=== PATIENT | male | born 2000 | race African-American/Black ===

== ENCOUNTER 2024-04-03 11:38 | Emergency (ER) | payer OTHER, SELFPAY ==
[2024-04-03 11:42] VITALS: BP 123/72; PULSE 93; RESP 20; TEMP 36.7; O2SAT 96; BMI 24.2
--- NOTE | 2024-04-03 11:47 | DI.RAD.S_ITS ---
PROCEDURE: XR ANKLE LT MIN 3V INDICATIONS: poss ankle fx TECHNIQUE: 3 views of the ankle were acquired. COMPARISON: None. FINDINGS: Bones: No fractures or dislocations. Ankle mortise is normally aligned. No suspicious bony lesions. Soft tissues: No tibiotalar joint effusion. Achilles tendon appears normal. IMPRESSION: No acute bony abnormality or significant effusion. Dictated by: Jose Benitez M.D. on 04/03/2024 at 13:02 Approved by: Jose Benitez M.D. on 04/03/2024 at 13:04
--- NOTE | 2024-04-03 13:54 | ED_ITS ---
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 when he jumped up and then landed hard feeling a cracking sensation in his left ankle. He points to the lateral ankle. He did not have any significant pain at that point but overnight he developed some swelling and now it is difficult to bear weight without pain. He was wearing a basketball mid height shoe during sport. He is describes the pain as a 7/10. He denies any prior ankle injuries. He works in [employer] at [employer] [place]. No treatment tried. All other systems reviewed and are negative. Review of Systems <Sondra Hooker PA-C - Last Filed: 04/03/24 14:20> Review of Systems Narrative: All other systems reviewed and are negative. Patient History <Sondra Hooker PA-C - Last Filed: 04/03/24 14:20> Social History Smoking Status: Current every day smoker Smoking Status: Current every day smoker tobacco type: vaping Exam <Sondra Hooker PA-C - Last Filed: 04/03/24 14:20> Initial Vital Signs Initial Vital Signs: Vital Signs Temperature 98.1 F 04/03/24 11:42 Pulse Rate 93 H 04/03/24 11:42 Respiratory Rate 20 04/03/24 11:42 Blood Pressure 123/72 04/03/24 11:42 Pulse Oximetry 96 04/03/24 11:42 Oxygen Delivery Method Room Air 04/03/24 11:42 Vital signs reviewed and are normal. Const General: cooperative, healthy appearing, comfortable and well developed Resp Effort & Inspection: normal respiratory effort and able to speak in complete sentences Cardio Rate: regular rate Rhythm: regular rhythm Skin General: no rashes or lesions noted, elasticity normal and turgor normal Extrem Left lower extremity: normal to inspection, normal capillary refill and ankle (Mild lateral swelling. No discoloration.) Details: tenderness (Pain with active ROM inversion. Negative anterior drawer.) Location: of the anterior talofibular ligament; not of the achilles tendon; no cyanosis Other: Pain is reproduced with weightbear but he is able to demonstrate stability. Normal DP and PT pulses. No crescent sign. No focal tenderness along the calcaneus, Achilles, calf, no lower leg tenderness about the knee or upper lower leg. <Palmira Liu DO - Last Filed: 04/04/24 18:31> Initial Vital Signs Initial Vital Signs: Vital Signs Temperature 98.1 F 04/03/24 11:42 Pulse Rate 93 H 04/03/24 11:42 Respiratory Rate 20 04/03/24 11:42 Blood Pressure 123/72 04/03/24 11:42 Pulse Oximetry 96 04/03/24 11:42 Oxygen Delivery Method Room Air 04/03/24 11:42 Course <Sondra Hooker PA-C - Last Filed: 04/03/24 14:20> Orders Ordered: ED Orders 04/03/24 11:47 XR ankle LT min 3V Stat Vital Signs Vital signs: Vital Signs - 8 hr 04/03/24 11:42 Temperature 98.1 F Pulse Rate 93 H Respiratory Rate 20 Blood Pressure 123/72 Pulse Oximetry 96 Oxygen Delivery Method Room Air <DO Meseret Samaniego Last Filed: 04/04/24 18:31> Orders Ordered: ED Orders 04/03/24 11:47 XR ankle LT min 3V Stat Vital Signs Vital signs: Vital Signs - 8 hr 04/03/24 11:42 Temperature 98.1 F Pulse Rate 93 H Respiratory Rate 20 Blood Pressure 123/72 Pulse Oximetry 96 Oxygen Delivery Method Room Air MDM - Extremity Injury (Lower) <RAIN Woo Last Filed: 04/03/24 14:20> Imaging Data Extremity x-ray #1: Radiologist's Impression: PROCEDURE: XR ANKLE LT MIN 3V INDICATIONS: poss ankle fx TECHNIQUE: 3 views of the ankle were acquired. COMPARISON: None. FINDINGS: Bones: No fractures or dislocations. Ankle mortise is normally aligned. No suspicious bony lesions. Soft tissues: No tibiotalar joint effusion. Achilles tendon appears normal. IMPRESSION: No acute bony abnormality or significant effusion. Dictated by: Jose Benitez M.D. on 04/03/2024 at 13:02 Approved by: Jose Benitez M.D. on 04/03/2024 at 13:04 [facility] Narrative Medical decision making narrative: Clinical findings on examination are consistent with acute ankle sprain, x-rays were negative for fracture. There is no exquisite swelling, neurovascular is grossly intact, he has no prior history of any ankle sprains on the left side. He is fitted with a walking boot although he will limit his weightbear and advance as tolerated, he declined crutches as he has them at home or available to obtain at [facility] on loan. 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 Discharge Plan Departure Patient Disposition: Home Clinical Impression: Ankle sprain and strain Instructions: DI for Ankle Sprain Activity Restrictions/Additional Instructions: Please wear the boot at all times including bedtime, you may remove for showering but I recommend a shower chair for safety, please use crutches and advance your weightbear as tolerated. Please follow up at [facility], if you need a profile or you might need a referral to physical therapy as you could benefit from an ankle strengthening program in the near future. The hanson is to avoid re-injury in the next 6 months, you should see some gradual improvement in the next couple of weeks. You may use acetaminophen also known as Tylenol or ibuprofen with food as needed for pain, you may continue to ice, remove herself from the boot elevate with a pillow and ice directly over the ankle 10-15 minutes at a time, wear a sock or use a washcloth to minimize skin injury. Referrals: Provider,Devorah DOLAN [Primary Care Provider] - Stand Alone Forms: Patient Portal/API/Survey, Work Release Note ED Sign-out <Palmira Liu DO - Last Filed: 04/04/24 18:31> Cosign ED Attending Slaeem Attestation: I was immediately available in the department for consultation.
[2024-04-03 14:13] VITALS: BP 122/63; PULSE 79; RESP 18; O2SAT 97
== END 2024-04-03 14:12 | disposition home or self-care (01) ==
PROVIDERS: Emergency Provider Physician Assistant Medical
DX: S93.402A Sprain of unspecified ligament of left ankle, initial encounter (principal); X50.9XXA Other and unspecified overexertion or strenuous movements or postures, initial encounter; Y93.67 Activity, basketball
CPT/HCPCS: 73610; 99281; 99283